=== PATIENT | female | born 1955 | race African-American/Black ===

== ENCOUNTER 2022-10-19 13:50 | Inpatient (IN) | payer MEDICAID ==
[~2022-10-19] VITALS: Ht 160 cm; Wt 91.2 kg
[2022-10-19] MEDS ORDERED: insulin (13:58)
[2022-10-19 15:34] LABS: BASOPHILS % 0.6 % (0.0-2.0); EOSINOPHILS % 0.3 % (0.0-5.0); HEMATOCRIT. 34.3 % (36.0-48.0); HEMOGLOBIN. 11.2 g/dL (12.0-16.0); LYMPHOCYTES % 12.4 % (20.0-50.0); MEAN CORPUSCULAR HEMOGLOBIN 28.3 pg (28.0-32.0); MEAN CORPUSCULAR VOLUME 86.3 fL (81.0-99.0); MEAN PLATELET VOLUME 9.9 fl (7.4-10.4); MONOCYTES % 5.7 % (2.0-8.0); PLATELET 229 x1000/uL (130-400); RED BLOOD CELL COUNT 3.97 mill/uL (4.2-5.4); RED CELL DISTRIBUTION WIDTH 12.6 % (11.6-14.6)
[2022-10-19 15:49] LABS: CHLORIDE 112 mEq/L (98-107)
[2022-10-19 15:57] LABS: CLARITY URINE TURBID (CLEAR); COLOR URINE DARK YELLOW (YELLOW); KETONES URINE TRACE (NEGATIVE); LEUKOCYTE ESTERASE URINE 3+ (NEGATIVE); NITRITE URINE NEGATIVE (NEGATIVE); OCCULT BLOOD URINE NEGATIVE (NEGATIVE); PROTEIN URINE TRACE (NEGATIVE)
[2022-10-19] MEDS ORDERED: CEFTRIAXONE 1 G PREMIX 50 ML IV ONE (18:15)
[2022-10-19] MEDS ORDERED: NITROGLYCERIN 0.4MG TABLET SL SL PRN (18:15)
[2022-10-19] MEDS ORDERED: MAGNESIUM/ALUMINUM HYDROXIDE/SIMETHICONE 30ML UDC PO PRN (18:30)
[2022-10-19] MEDS ORDERED: CEFTRIAXONE 1GM PREMIX 50ML IV NR (18:30)
[2022-10-19] MEDS ORDERED: KETOROLAC 15MG/ML VIAL IV PRN (18:30)
[2022-10-19] MEDS ORDERED: IPRATROPIUM/ALBUTEROL 0.5-3(2.5)MG/3ML NEB NEB PRN (18:30)
[2022-10-19] MEDS ORDERED: ACETAMINOPHEN 325MG TABLET PO PRN (18:30)
[2022-10-19] MEDS ORDERED: CLONIDINE 0.1MG TABLET PO PRN (18:30)
[2022-10-19] MEDS ORDERED: ONDANSETRON HCL 4MG/2ML INJ IV PRN (18:30)
[2022-10-19] MEDS ORDERED: DEXTROSE 50% WATER 50ML SYRINGE IV PRN (18:30)
[2022-10-19] MEDS ORDERED: IPRATROPIUM BROMIDE (0.02%) 0.5MG/2.5ML NEB HHN PRN (18:30)
[2022-10-19] MEDS ORDERED: LEVOFLOXACIN 500MG PREMIX 100 ML IV SCH (18:30)
[2022-10-19] MEDS ORDERED: ALBUTEROL (0.083%) 2.5MG/3ML NEB HHN PRN (18:30)
[2022-10-19] MEDS ORDERED: DOCUSATE SODIUM 100MG CAPSULE PO PRN (18:30)
[2022-10-19 19:08] LABS: ETHANOL BLOOD < 10 mg/dL; HDL CHOLESTEROL 40 mg/dL (40-59); LDL CHOLESTEROL 119 mg/dL (5-100); T4 FREE 1.33 ng/dL (0.76-1.46); TOTAL IRON BINDING CAPACITY 249 ug/dL (250-450)
[2022-10-19 19:40] LABS: VITAMIN B12 SERUM 536 pg/mL (211-911)
[2022-10-19 19:46] LABS: FOLIC ACID (FOLATE) SERUM > 20.00 ng/mL (>5.38)
[2022-10-19 20:18] LABS: *AMPHETAMINES SCREEN URINE NEGATIVE (NEGATIVE); *BARBITURATES SCREEN URINE NEGATIVE (NEGATIVE); *BENZODIAZEPINES SCREEN URINE NEGATIVE (NEGATIVE); *COCAINE SCREEN URINE NEGATIVE (NEGATIVE); CANNABINOID URINE SCREEN NEGATIVE (NEGATIVE); METHADONE URINE SCREEN NEGATIVE (NEGATIVE); OPIATES URINE SCREEN NEGATIVE (NEGATIVE); PHENCYCLIDINE URINE SCREEN NEGATIVE (NEGATIVE)
[2022-10-19] MEDS: ASCORBIC ACID 500 MG TABLET PO SCH (20:31)
[2022-10-19] MEDS: ENOXAPARIN 30MG/0.3ML SYR SUBCUT SCH (20:31)
[2022-10-19] MEDS: FAMOTIDINE 20MG TABLET PO SCH (20:31)
[2022-10-19] MEDS: INSULIN LISPRO 100 UNITS/ML SUBCUT SCH (20:32)
[2022-10-19] MEDS: BLOOD SUGAR DIAGNOSTIC STRIP TEST SCH (21:54)
[2022-10-19 23:25] LABS: CREATINE KINASE 101 IU/L (26-192); CREATINE KINASE MB FRACTION < 1.0 ng/mL (0.5-3.6)
[2022-10-20] VITALS (7 sets, daily range): BP systolic 113–156; BP diastolic 77–107
[2022-10-20] MEDS: ZOLPIDEM TARTRATE 5MG TABLET PO PRN (02:53)
[2022-10-20] MEDS ORDERED: RISP0.2514 MT (03:24)
[2022-10-20] MEDS ORDERED: BUPR75TA8 MT (03:24)
[2022-10-20] MEDS ORDERED: DIVA125T2 MT (03:24)
[2022-10-20] MEDS ORDERED: ASPI-986 PO (03:24)
[2022-10-20] MEDS ORDERED: ATOR10TA69 MT (03:24)
[2022-10-20] MEDS ORDERED: FAMO-135 MT (03:24)
[2022-10-20] MEDS: ACETAMINOPHEN 325MG TABLET PO PRN ×2 (06:44→17:33)
[2022-10-20] MEDS: INSULIN LISPRO 100 UNITS/ML SUBCUT SCH ×4 (06:44→21:08)
[2022-10-20] MEDS: BLOOD SUGAR DIAGNOSTIC STRIP TEST SCH ×4 (06:44→20:58)
[2022-10-20 07:16] LABS: BASOPHILS % 0.8 % (0.0-2.0); EOSINOPHILS % 0.8 % (0.0-5.0); HEMATOCRIT. 33.2 % (36.0-48.0); HEMOGLOBIN. 11.4 g/dL (12.0-16.0); LYMPHOCYTES % 27.2 % (20.0-50.0); MEAN CORPUSCULAR HEMOGLOBIN 29.3 pg (28.0-32.0); MEAN CORPUSCULAR VOLUME 85.5 fL (81.0-99.0); MEAN PLATELET VOLUME 10.4 fl (7.4-10.4); MONOCYTES % 8.4 % (2.0-8.0); NEUTROPHILS % 62.8 % (40.0-76.0); PLATELET 225 x1000/uL (130-400); RED BLOOD CELL COUNT 3.89 mill/uL (4.2-5.4); RED CELL DISTRIBUTION WIDTH 12.5 % (11.6-14.6)
[2022-10-20 07:21] LABS: CHLORIDE 107 mEq/L (98-107)
[2022-10-20 07:38] LABS: CREATINE KINASE 108 IU/L (26-192); CREATINE KINASE MB FRACTION < 1.0 ng/mL (0.5-3.6); PHOSPHORUS 3.6 mg/dL (2.5-4.9)
[2022-10-20] MEDS: LACTULOSE 20G/30ML UDC PO SCH (09:41)
[2022-10-20] MEDS: ZINC SULFATE 220 MG ( 50 ) CAPSULE PO SCH (09:41)
[2022-10-20] MEDS: FAMOTIDINE 20MG TABLET PO SCH ×2 (09:41→20:58)
[2022-10-20] MEDS: ASPIRIN 81MG EC TABLET PO SCH (09:41)
[2022-10-20] MEDS: ASCORBIC ACID 500 MG TABLET PO SCH ×2 (09:41→20:58)
[2022-10-20] MEDS: ENOXAPARIN 30MG/0.3ML SYR SUBCUT SCH ×2 (09:42→20:58)
[2022-10-20] MEDS ORDERED: LEVOFLOXACIN 500MG PREMIX 100 ML IV SCH (17:00)
[2022-10-20] MEDS: CEFTRIAXONE 1,000 MG in DEXTROSE 5% WATER 50 ML IV SCH (17:29)
[2022-10-20] MEDS: DIVALPROEX SODIUM 125MG SPRINKLE CAPSULE PO SCH (17:38)
[2022-10-20] MEDS ORDERED: CEFTRIAXONE 1,000 MG in DEXTROSE 5% WATER 50 ML IV SCH (18:00)
[2022-10-20] MEDS ORDERED: PNEUMOCOCCAL 23-VAL P-SAC VAC 0.5 ML IM ONE (21:00)
[2022-10-20] MEDS: GUAIFENESIN 200MG/10ML SUGAR FREE UDC PO PRN (22:11)
[2022-10-21] VITALS: BP 113/73
[2022-10-21] MEDS: ZOLPIDEM TARTRATE 5MG TABLET PO PRN ×2 (00:39→23:33)
[2022-10-21 04:00] VITALS: BP 122/87
[2022-10-21] MEDS: INSULIN LISPRO 100 UNITS/ML SUBCUT SCH ×4 (05:56→20:57)
[2022-10-21] MEDS: BLOOD SUGAR DIAGNOSTIC STRIP TEST SCH ×4 (05:56→20:57)
[2022-10-21 08:00] VITALS: BP 119/75
[2022-10-21] MEDS: ZINC SULFATE 220 MG ( 50 ) CAPSULE PO SCH (08:44)
[2022-10-21] MEDS: ENOXAPARIN 30MG/0.3ML SYR SUBCUT SCH ×2 (08:44→20:55)
[2022-10-21] MEDS: ASPIRIN 81MG EC TABLET PO SCH (08:44)
[2022-10-21] MEDS: ASCORBIC ACID 500 MG TABLET PO SCH ×2 (08:44→20:55)
[2022-10-21] MEDS: FAMOTIDINE 20MG TABLET PO SCH ×2 (08:44→20:55)
[2022-10-21] MEDS: LACTULOSE 20G/30ML UDC PO SCH (08:44)
[2022-10-21] MEDS: DIVALPROEX SODIUM 125MG SPRINKLE CAPSULE PO SCH ×2 (08:44→17:09)
[2022-10-21 12:00] VITALS: BP 123/96
[2022-10-21] MEDS: CEFTRIAXONE 1,000 MG in DEXTROSE 5% WATER 50 ML IV SCH (15:51)
[2022-10-21 16:00] VITALS: BP 135/95
[2022-10-21 20:00] VITALS: BP 121/85
[2022-10-21] MEDS: GUAIFENESIN 200MG/10ML SUGAR FREE UDC PO PRN (20:55)
[2022-10-21] MEDS: ACETAMINOPHEN 325MG TABLET PO PRN (23:35)
[2022-10-22] VITALS: BP 134/102
[2022-10-22 04:00] VITALS: BP 102/48
[2022-10-22] MEDS: BLOOD SUGAR DIAGNOSTIC STRIP TEST SCH ×4 (06:29→20:53)
[2022-10-22] MEDS: INSULIN LISPRO 100 UNITS/ML SUBCUT SCH ×4 (07:40→20:54)
[2022-10-22 08:00] VITALS: BP 122/85
[2022-10-22] MEDS: ZINC SULFATE 220 MG ( 50 ) CAPSULE PO SCH (08:38)
[2022-10-22] MEDS: DIVALPROEX SODIUM 125MG SPRINKLE CAPSULE PO SCH ×2 (08:38→17:10)
[2022-10-22] MEDS: ASCORBIC ACID 500 MG TABLET PO SCH ×2 (08:38→20:52)
[2022-10-22] MEDS: FAMOTIDINE 20MG TABLET PO SCH (08:38)
[2022-10-22] MEDS: ASPIRIN 81MG EC TABLET PO SCH (08:39)
[2022-10-22] MEDS: ENOXAPARIN 30MG/0.3ML SYR SUBCUT SCH ×2 (08:39→20:52)
[2022-10-22] MEDS: LACTULOSE 20G/30ML UDC PO SCH (08:39)
[2022-10-22] MEDS ORDERED: SODIUM CHLORIDE 0.9% 500 ML IV ONE (09:45)
[2022-10-22] MEDS: RISPERIDONE 1MG TABLET PO SCH ×2 (10:09→20:52)
[2022-10-22 12:00] VITALS: BP 110/72
[2022-10-22] MEDS: CEFTRIAXONE 1,000 MG in DEXTROSE 5% WATER 50 ML IV SCH (15:22)
[2022-10-22 16:00] VITALS: BP 128/81
[2022-10-22 20:00] VITALS: BP 130/86
[2022-10-22] MEDS: GUAIFENESIN 200MG/10ML SUGAR FREE UDC PO PRN (22:15)
[2022-10-22] MEDS: ACETAMINOPHEN 325MG TABLET PO PRN (23:46)
[2022-10-23] VITALS: BP 116/75
[2022-10-23] MEDS: ZOLPIDEM TARTRATE 5MG TABLET PO PRN (00:41)
[2022-10-23 04:00] VITALS: BP 130/86
[2022-10-23] MEDS: INSULIN LISPRO 100 UNITS/ML SUBCUT SCH ×2 (07:40→12:13)
[2022-10-23 08:00] VITALS: BP 116/93
[2022-10-23] MEDS: ZINC SULFATE 220 MG ( 50 ) CAPSULE PO SCH (08:56)
[2022-10-23] MEDS: ASPIRIN 81MG EC TABLET PO SCH (08:56)
[2022-10-23] MEDS: LACTULOSE 20G/30ML UDC PO SCH (08:56)
[2022-10-23] MEDS: ASCORBIC ACID 500 MG TABLET PO SCH (08:56)
[2022-10-23] MEDS: DIVALPROEX SODIUM 125MG SPRINKLE CAPSULE PO SCH (08:56)
[2022-10-23] MEDS: ENOXAPARIN 30MG/0.3ML SYR SUBCUT SCH (08:56)
[2022-10-23] MEDS: RISPERIDONE 1MG TABLET PO SCH (08:56)
[2022-10-23] MEDS ORDERED: FAMOTIDINE 20MG TABLET PO SCH (09:00)
[2022-10-23 12:00] VITALS: BP 114/75
[2022-10-23] MEDS: BLOOD SUGAR DIAGNOSTIC STRIP TEST SCH (12:13)
[2022-10-23] MEDS ORDERED: CEPH500C2 MT (14:23)
[2022-10-23 14:48] VITALS: BP 114/75
[2022-11-02] MEDS ORDERED: ATOR10TA69 MT (12:26)
[2022-11-02] MEDS ORDERED: ASPI-1406 PO (12:26)
[2022-11-02] MEDS ORDERED: LISI10TA26 PO (12:26)
[2022-11-02] MEDS ORDERED: COR6 PO (12:26)
[2022-11-02] MEDS ORDERED: AMLO10TA80 PO (12:26)
== END 2022-10-23 16:00 | disposition home or self-care (01) | DRG 720 ==
LOC: ER 13:50 → 8WST 18:03 → EDBEDREQ 18:23 → EDBEDREQTM 18:23 → ENRESERV 23:55
PROVIDERS: ADMIT Internal Medicine; ATTEND Internal Medicine
DX: A41.9 Sepsis, unspecified organism (principal); E44.0 Moderate protein-calorie malnutrition; E11.65 Type 2 diabetes mellitus with hyperglycemia; D64.9 Anemia, unspecified; E78.5 Hyperlipidemia, unspecified; E87.6 Hypokalemia; N39.0 Urinary tract infection, site not specified; K21.9 Gastro-esophageal reflux disease without esophagitis; R55 Syncope and collapse; Z20.822 Contact with and (suspected) exposure to COVID-19; I10 Essential (primary) hypertension; K59.00 Constipation, unspecified; Z68.35 Body mass index [BMI] 35.0-35.9, adult
CPT/HCPCS: 36415; 71045; 80053; 80061; 80305; 80320; 81003; 82550; 82553; 82607; 82746; 82962; 83036; 83540; 83550; 83605; 83735; 83880; 84100; 84145; 84439; 84443; 84484; 85025; 86710; 87077; 87186; 87426; 87804; 90732; 93005; 93306; 93970; 97162; 97166; 99291; J0696; J1650; J1815; J1956; J7060; G0480

== ENCOUNTER 2022-10-29 21:28 | Inpatient (IN) | payer MEDICAID ==
[~2022-10-29] VITALS: Ht 160 cm; Wt 99.8 kg
[~2022-10-29 21:28] MED LIST: ASPI-986 PO; ATOR10TA69 MT; BUPR75TA8 MT; CEPH500C2 MT; DIVA125T2 MT; FAMO-135 MT; RISP0.2514 MT; insulin
[2022-10-29] MEDS ORDERED: SODIUM CHLORIDE 0.9% 1,000 ML IV ONE (22:00)
[2022-10-29] MEDS ORDERED: OLANZAPINE 5MG TABLET PO SCH (22:30)
[2022-10-29 22:33] LABS: BASOPHILS % 0.4 % (0.0-2.0); EOSINOPHILS % 1.3 % (0.0-5.0); LYMPHOCYTES % 23.1 % (20.0-50.0); MEAN CORPUSCULAR HEMOGLOBIN 28.2 pg (28.0-32.0); MEAN CORPUSCULAR VOLUME 86.7 fL (81.0-99.0); MEAN PLATELET VOLUME 10.5 fl (7.4-10.4); MONOCYTES % 7.2 % (2.0-8.0); PLATELET 207 x1000/uL (130-400); RED BLOOD CELL COUNT 3.92 mill/uL (4.2-5.4); RED CELL DISTRIBUTION WIDTH 12.6 % (11.6-14.6)
[2022-10-29 22:38] LABS: CHLORIDE 107 mEq/L (98-107)
[2022-10-30] MEDS ORDERED: LORAZEPAM 2MG/ML CPJ IV NR (00:15)
[2022-10-30] MEDS ORDERED: IPRATROPIUM/ALBUTEROL 0.5-3(2.5)MG/3ML NEB HHN PRN (00:15)
[2022-10-30] MEDS ORDERED: DOCUSATE SODIUM 100MG CAPSULE PO PRN (00:15)
[2022-10-30] MEDS ORDERED: DIPHENHYDRAMINE 50MG/ML VIAL IV PRN (00:15)
[2022-10-30] MEDS ORDERED: MAGNESIUM/ALUMINUM HYDROXIDE/SIMETHICONE 30ML UDC PO PRN (00:15)
[2022-10-30] MEDS ORDERED: ENOXAPARIN 40MG/0.4ML SYR SUBCUT SCH (00:15)
[2022-10-30] MEDS ORDERED: CLONIDINE 0.1MG TABLET PO PRN (00:15)
[2022-10-30] MEDS ORDERED: ACETAMINOPHEN 325MG TABLET PO PRN (00:15)
[2022-10-30] MEDS ORDERED: LOSARTAN POTASSIUM 25 MG TABLET PO NR (00:30)
[2022-10-30] MEDS: LISINOPRIL 10MG TABLET PO SCH ×2 (00:30→13:33)
[2022-10-30] MEDS ORDERED: DEXTROSE 50% WATER 50ML SYRINGE IV PRN (01:15)
[2022-10-30] MEDS: AMLODIPINE 10MG TABLET PO SCH ×2 (01:20→13:33)
[2022-10-30] MEDS: CARVEDILOL 6.25 MG TABLET PO SCH ×3 (01:20→16:39)
[2022-10-30] MEDS ORDERED: OLANZAPINE 5MG TABLET PO NR (03:15)
[2022-10-30 06:25] LABS: CREATINE KINASE MB FRACTION 1.4 ng/mL (0.5-3.6)
[2022-10-30] MEDS: BLOOD SUGAR DIAGNOSTIC STRIP TEST SCH ×4 (06:54→21:52)
[2022-10-30] MEDS: INSULIN LISPRO 100 UNITS/ML SUBCUT SCH ×4 (06:55→21:00)
[2022-10-30] MEDS ORDERED: RISPERIDONE 0.25MG TABLET PO SCH (09:00)
[2022-10-30] MEDS: FAMOTIDINE 20MG TABLET PO SCH ×2 (09:00→21:49)
[2022-10-30] MEDS: BUPROPION HCL 75MG TABLET PO SCH (09:00)
[2022-10-30] MEDS ORDERED: DIVALPROEX SODIUM 125MG DR TABLET PO SCH (09:00)
[2022-10-30 10:20] VITALS: BP 131/96
[2022-10-30 11:00] VITALS: BP 131/96
[2022-10-30 12:00] VITALS: BP 136/90
[2022-10-30] MEDS ORDERED: IPRATROPIUM BROMIDE (0.02%) 0.5MG/2.5ML NEB HHN PRN (13:00)
[2022-10-30] MEDS ORDERED: ALBUTEROL (0.083%) 2.5MG/3ML NEB HHN PRN (13:00)
[2022-10-30] MEDS: ASPIRIN 81MG EC TABLET PO SCH (13:33)
[2022-10-30] MEDS: ENOXAPARIN 30MG/0.3ML SYR SUBCUT SCH ×2 (15:25→21:49)
[2022-10-30 16:00] VITALS: BP 117/48
[2022-10-30 17:25] LABS: CREATINE KINASE 66 IU/L (26-192); CREATINE KINASE MB FRACTION < 1.0 ng/mL (0.5-3.6)
[2022-10-30 18:31] LABS: HEPATITIS B SURFACE ANTIGEN NEGATIVE
[2022-10-30 19:48] LABS: *AMPHETAMINES SCREEN URINE NEGATIVE (NEGATIVE); *BARBITURATES SCREEN URINE NEGATIVE (NEGATIVE); *BENZODIAZEPINES SCREEN URINE NEGATIVE (NEGATIVE); *COCAINE SCREEN URINE NEGATIVE (NEGATIVE); CANNABINOID URINE SCREEN NEGATIVE (NEGATIVE); METHADONE URINE SCREEN NEGATIVE (NEGATIVE); OPIATES URINE SCREEN NEGATIVE (NEGATIVE); PHENCYCLIDINE URINE SCREEN NEGATIVE (NEGATIVE)
[2022-10-30 20:00] VITALS: BP 94/66
[2022-10-30] MEDS: ATORVASTATIN CALCIUM 10MG TABLET PO SCH (21:49)
[2022-10-30] MEDS: ARIPIPRAZOLE 5MG TABLET PO SCH (21:49)
[2022-10-30] MEDS: GUAIFENESIN 200MG/10ML SUGAR FREE UDC PO PRN (21:52)
[2022-10-30 22:44] LABS: CLARITY URINE CLEAR (CLEAR); COLOR URINE YELLOW (YELLOW); KETONES URINE NEGATIVE (NEGATIVE); LEUKOCYTE ESTERASE URINE NEGATIVE (NEGATIVE); NITRITE URINE NEGATIVE (NEGATIVE); OCCULT BLOOD URINE NEGATIVE (NEGATIVE); PROTEIN URINE NEGATIVE (NEGATIVE); SPECIFIC GRAVITY URINE 1.011 (1.005-1.030); UROBILINOGEN URINE 0.2 E.U./dL (0.2-1.0)
[2022-10-30] MEDS: ZOLPIDEM TARTRATE 5MG TABLET PO PRN (23:14)
[2022-10-30] MEDS: ACETAMINOPHEN 325MG TABLET PO PRN (23:19)
[2022-10-31] VITALS: BP 121/82
[2022-10-31 04:00] VITALS: BP 115/80
[2022-10-31] MEDS: ACETAMINOPHEN 325MG TABLET PO PRN (05:23)
[2022-10-31] MEDS: BLOOD SUGAR DIAGNOSTIC STRIP TEST SCH ×4 (07:10→21:56)
[2022-10-31 07:23] LABS: BASOPHILS % 0.7 % (0.0-2.0); EOSINOPHILS % 1.8 % (0.0-5.0); HEMATOCRIT. 34.7 % (36.0-48.0); HEMOGLOBIN. 11.3 g/dL (12.0-16.0); LYMPHOCYTES % 27.7 % (20.0-50.0); MEAN CORPUSCULAR HEMOGLOBIN 28.5 pg (28.0-32.0); MEAN CORPUSCULAR VOLUME 87.3 fL (81.0-99.0); MEAN PLATELET VOLUME 11.3 fl (7.4-10.4); MONOCYTES % 7.8 % (2.0-8.0); PLATELET 200 x1000/uL (130-400); RED BLOOD CELL COUNT 3.97 mill/uL (4.2-5.4); RED CELL DISTRIBUTION WIDTH 12.3 % (11.6-14.6)
[2022-10-31] MEDS: INSULIN LISPRO 100 UNITS/ML SUBCUT SCH ×4 (07:40→22:03)
[2022-10-31 08:00] VITALS: BP_SYST 124; BP_SYST 136; BP_SYST 152; BP_DIAS 85; BP_DIAS 89; BP_DIAS 99
[2022-10-31] MEDS: BUPROPION HCL 75MG TABLET PO SCH (08:34)
[2022-10-31] MEDS: ASPIRIN 81MG EC TABLET PO SCH (08:34)
[2022-10-31] MEDS: CARVEDILOL 6.25 MG TABLET PO SCH ×2 (08:34→16:53)
[2022-10-31] MEDS: LISINOPRIL 10MG TABLET PO SCH (08:34)
[2022-10-31] MEDS: FAMOTIDINE 20MG TABLET PO SCH ×2 (08:34→21:55)
[2022-10-31] MEDS: AMLODIPINE 10MG TABLET PO SCH (08:35)
[2022-10-31] MEDS: ENOXAPARIN 30MG/0.3ML SYR SUBCUT SCH ×2 (08:36→21:56)
[2022-10-31] MEDS ORDERED: ENOXAPARIN 40MG/0.4ML SYR SUBCUT SCH (09:00)
[2022-10-31 09:17] LABS: CHLORIDE 104 mEq/L (98-107)
[2022-10-31 10:11] LABS: HDL CHOLESTEROL 40 mg/dL (40-59); LDL CHOLESTEROL 70 mg/dL (5-100); T4 FREE 1.11 ng/dL (0.76-1.46)
[2022-10-31] MEDS ORDERED: METOPROLOL TARTRATE 25MG TABLET PO NR (11:00)
[2022-10-31 11:34] VITALS: BP 110/69
[2022-10-31 16:00] VITALS: BP 108/75
[2022-10-31 20:00] VITALS: BP 100/72
[2022-10-31] MEDS: ATORVASTATIN CALCIUM 10MG TABLET PO SCH (21:55)
[2022-10-31] MEDS: ARIPIPRAZOLE 5MG TABLET PO SCH (21:55)
[2022-10-31] MEDS: GUAIFENESIN 200MG/10ML SUGAR FREE UDC PO PRN (22:10)
[2022-10-31] MEDS: ZOLPIDEM TARTRATE 5MG TABLET PO PRN (23:57)
[2022-11-01] VITALS: BP 116/67
[2022-11-01 04:00] VITALS: BP 116/80
[2022-11-01] MEDS: GUAIFENESIN 200MG/10ML SUGAR FREE UDC PO PRN (05:19)
[2022-11-01 06:09] LABS: INR 1.1; PROTHROMBIN TIME 11.6 sec (9.6-11.0)
[2022-11-01 06:15] LABS: CHLORIDE 103 mEq/L (98-107)
[2022-11-01 06:24] LABS: BASOPHILS % 0.7 % (0.0-2.0); EOSINOPHILS % 1.8 % (0.0-5.0); HEMATOCRIT. 32.5 % (36.0-48.0); HEMOGLOBIN. 10.7 g/dL (12.0-16.0); LYMPHOCYTES % 27.5 % (20.0-50.0); MEAN CORPUSCULAR HEMOGLOBIN 28.4 pg (28.0-32.0); MEAN CORPUSCULAR VOLUME 86.2 fL (81.0-99.0); MEAN PLATELET VOLUME 10.6 fl (7.4-10.4); PLATELET 218 x1000/uL (130-400); RED BLOOD CELL COUNT 3.78 mill/uL (4.2-5.4); RED CELL DISTRIBUTION WIDTH 12.3 % (11.6-14.6)
[2022-11-01 06:27] LABS: PHOSPHORUS 3.7 mg/dL (2.5-4.9)
[2022-11-01] MEDS: BLOOD SUGAR DIAGNOSTIC STRIP TEST SCH ×4 (07:10→21:53)
[2022-11-01] MEDS: INSULIN LISPRO 100 UNITS/ML SUBCUT SCH ×4 (07:40→21:54)
[2022-11-01 08:00] VITALS: BP 113/85
[2022-11-01] MEDS: AMLODIPINE 10MG TABLET PO SCH (08:39)
[2022-11-01] MEDS: FAMOTIDINE 20MG TABLET PO SCH ×2 (08:39→21:53)
[2022-11-01] MEDS: BUPROPION HCL 75MG TABLET PO SCH (08:39)
[2022-11-01] MEDS: ASPIRIN 81MG EC TABLET PO SCH (08:39)
[2022-11-01] MEDS: CARVEDILOL 6.25 MG TABLET PO SCH ×2 (08:39→18:23)
[2022-11-01] MEDS: LISINOPRIL 10MG TABLET PO SCH (08:39)
[2022-11-01] MEDS: ENOXAPARIN 30MG/0.3ML SYR SUBCUT SCH ×2 (08:40→21:52)
[2022-11-01] MEDS ORDERED: NICARDIPINE 100MCG/ML 10ML VIAL (CATH LAB) IV ONE (09:51)
[2022-11-01] MEDS ORDERED: NITROGLYCERIN 50MCG/ML 10ML VIAL (CATH LAB) IV ONE (09:51)
[2022-11-01 12:00] VITALS: BP_SYST 114; BP_SYST 117; BP_SYST 121; BP_DIAS 85; BP_DIAS 89; BP_DIAS 91
[2022-11-01] MEDS ORDERED: IODIXANOL 320MG/ML 100 ML BOTTLE IV ONE (12:11)
[2022-11-01] MEDS ORDERED: HEPARIN 1000 UNITS/ML 10ML ONE (12:12)
[2022-11-01] MEDS ORDERED: LIDOCAINE HCL/PF 2% 20MG/ML 5 ML/VIAL ONE (12:12)
[2022-11-01] MEDS ORDERED: VERAPAMIL HCL 2.5 MG/1 ML 2ML VIAL IV ONE (12:22)
[2022-11-01] MEDS ORDERED: FENTANYL CITRATE/PF 50MCG/ML 2ML VIAL ONE (12:22)
[2022-11-01] MEDS ORDERED: LIDOCAINE HCL/PF 1% 10 MG/ML 5ML VIAL ONE (12:22)
[2022-11-01] MEDS ORDERED: MIDAZOLAM HCL 2 MG/2 ML VIAL ONE (12:23)
[2022-11-01] MEDS ORDERED: DIPHENHYDRAMINE 50MG/ML VIAL ONE (12:36)
[2022-11-01] MEDS ORDERED: ATROPINE SULFATE 1MG/10ML SYR IV PRN (13:45)
[2022-11-01] MEDS ORDERED: ONDANSETRON HCL 4MG/2ML INJ ONE (14:22)
[2022-11-01] MEDS: ONDANSETRON HCL 4MG/2ML INJ IV PRN ×2 (14:28→21:52)
[2022-11-01 17:30] VITALS: BP 120/82
[2022-11-01 20:00] VITALS: BP_SYST 108; BP_SYST 112; BP_DIAS 63; BP_DIAS 68
[2022-11-01] MEDS: ATORVASTATIN CALCIUM 10MG TABLET PO SCH (21:52)
[2022-11-01] MEDS: ARIPIPRAZOLE 5MG TABLET PO SCH (21:53)
[2022-11-02] VITALS: BP 106/64
[2022-11-02] MEDS: GUAIFENESIN 200MG/10ML SUGAR FREE UDC PO PRN (03:46)
[2022-11-02 04:00] VITALS: BP 104/67
[2022-11-02 06:43] LABS: BASOPHILS % 0.4 % (0.0-2.0); EOSINOPHILS % 0.1 % (0.0-5.0); HEMATOCRIT. 32.8 % (36.0-48.0); HEMOGLOBIN. 10.7 g/dL (12.0-16.0); LYMPHOCYTES % 18.8 % (20.0-50.0); MEAN CORPUSCULAR HEMOGLOBIN 28.2 pg (28.0-32.0); MEAN CORPUSCULAR VOLUME 86.7 fL (81.0-99.0); MEAN PLATELET VOLUME 11.6 fl (7.4-10.4); MONOCYTES % 5.7 % (2.0-8.0); PLATELET 198 x1000/uL (130-400); RED BLOOD CELL COUNT 3.79 mill/uL (4.2-5.4); RED CELL DISTRIBUTION WIDTH 12.5 % (11.6-14.6)
[2022-11-02 06:57] LABS: CHLORIDE 105 mEq/L (98-107)
[2022-11-02] MEDS: BLOOD SUGAR DIAGNOSTIC STRIP TEST SCH ×3 (07:10→17:10)
[2022-11-02] MEDS: INSULIN LISPRO 100 UNITS/ML SUBCUT SCH ×2 (07:40→12:40)
[2022-11-02 08:00] VITALS: BP 115/70
[2022-11-02] MEDS: BUPROPION HCL 75MG TABLET PO SCH (09:59)
[2022-11-02] MEDS: ENOXAPARIN 30MG/0.3ML SYR SUBCUT SCH (09:59)
[2022-11-02] MEDS: ASPIRIN 81MG EC TABLET PO SCH (09:59)
[2022-11-02] MEDS: FAMOTIDINE 20MG TABLET PO SCH (10:01)
[2022-11-02] MEDS: CARVEDILOL 6.25 MG TABLET PO SCH (10:01)
[2022-11-02] MEDS: LISINOPRIL 10MG TABLET PO SCH (10:02)
[2022-11-02] MEDS: AMLODIPINE 10MG TABLET PO SCH (10:02)
[2022-11-02 10:53] LABS: BG BASE EXCESS 0.9 mmol/L (-2.0-2.0); BG CARBOXYHEMOGLOBIN 0.2 % (0.5-1.5); BG DEOXYHEMOGLOBIN 5.9 % (0.0-5.0); BG FRACTION INSPIRED OXYGEN 21; BG HCO3 ACT 25.7 mmol/L (22.0-26.0); BG METHEMOGLOBIN 0.3 % (0.0-1.5); BG OXYGEN SATURATION 94.1 % (92.0-98.5); BG OXYHEMOGLOBIN 93.6 % (94.0-97.0); BG PCO2 41.7 mmHg (35.0-45.0); BG PH 7.407 (7.350-7.450); BG PO2 72.2 mmHg (75.0-100.0); BG SAMPLE SITE LEFT BRACHIAL; BG TOTAL HEMOGLOBIN 11.2 g/dL (12.0-18.0); BG VENT MODE ROOM AIR
[2022-11-02 12:00] VITALS: BP 116/68
[2022-11-02] MEDS ORDERED: ASPI-1406 PO (12:26)
[2022-11-02] MEDS ORDERED: COR6 PO (12:26)
[2022-11-02] MEDS ORDERED: AMLO10TA80 PO (12:26)
[2022-11-02] MEDS ORDERED: LISI10TA26 PO (12:26)
[2022-11-02] MEDS ORDERED: ATOR10TA69 MT (12:26)
[2022-11-02 14:39] VITALS: BP 95/55
[2022-11-02 16:00] VITALS: BP 122/72
[2022-11-03] MEDS ORDERED: FAMOTIDINE 20MG TABLET PO SCH (09:00)
== END 2022-11-02 19:16 | disposition home or self-care (01) | DRG 190 ==
LOC: ER 22:25 → SUPCPDRO 10-30 → MICUSO 10-30 00:49 → 8WST 10-30 09:57
PROVIDERS: ADMIT Internal Medicine; ATTEND Internal Medicine
PROC: 4A023N6 Measurement of Cardiac Sampling and Pressure, Right Heart, Percutaneous Approach (ICD-10-PCS; principal; 2022-11-01)
PROC: B2111ZZ Fluoroscopy of Multiple Coronary Arteries using Low Osmolar Contrast (ICD-10-PCS; 2022-11-01)
DX: I21.4 Non-ST elevation (NSTEMI) myocardial infarction (principal); I42.0 Dilated cardiomyopathy; E44.1 Mild protein-calorie malnutrition; E11.9 Type 2 diabetes mellitus without complications; I11.0 Hypertensive heart disease with heart failure; I50.22 Chronic systolic (congestive) heart failure; D64.9 Anemia, unspecified; E78.00 Pure hypercholesterolemia, unspecified; F20.9 Schizophrenia, unspecified; E46 Unspecified protein-calorie malnutrition; I42.8 Other cardiomyopathies; Z20.822 Contact with and (suspected) exposure to COVID-19; G40.909 Epilepsy, unspecified, not intractable, without status epilepticus; I25.10 Atherosclerotic heart disease of native coronary artery without angina pectoris; K21.9 Gastro-esophageal reflux disease without esophagitis; Z79.82 Long term (current) use of aspirin; Z68.39 Body mass index [BMI] 39.0-39.9, adult; Z79.899 Other long term (current) drug therapy; Z86.73 Personal history of transient ischemic attack (TIA), and cerebral infarction without residual deficits
CPT/HCPCS: 36415; 36600; 71045; 80048; 80053; 80061; 80305; 81003; 82375; 82550; 82553; 82805; 82962; 83735; 83880; 84100; 84439; 84443; 84484; 85025; 85379; 86803; 87340; 87426; 93005; 93306; 93456; 97161; 97166; 99291; C1769; C1887; C1893; J1200; J1644; J1650; J1815; J2060; J2250; J2405; J3010; J3490; J7030; Q9967